=== PATIENT | male | born 1965 ===

== ENCOUNTER 2024-07-28 06:43 | Day surgery (SDC) | payer BC ==
[2024-07-21 11:46] LABS: PH,URINE 6.5 (5.0-8.0); URINE APPEARANCE Clear; URINE BILIRRUBIN Negative (NEGATIVE); URINE BLOOD Negative; URINE COLOR Yellow; URINE GLUCOSE Negative (NEGATIVE); URINE KETONE Negative (NEGATIVE); URINE LEUKOCYTE Negative; URINE NITRATE Negative; URINE PROTEIN Negative (NEGATIVE); URINE UROBILINOGEN 0.2 E.U./dl
[2024-07-21 11:47] LABS: HEMATOCRIT 41.7 % (39.0-48.0); MEAN CELL VOLUME 84.7 fL (80.0-100.00); MEAN CORPUSCULAR HEMOGLOBIN 28.4 pg (27.00-32.0); MEAN CORPUSCULAR HGB CONC 33.5 g/dl (32.0-36.0); PLATELET COUNT 152 K/uL (150-450); RED BLOOD COUNT 4.92 M/uL (4.00-6.00)
[2024-07-21 11:52] LABS: URINE BACTERIA 7.5 uL (0.0-1933)
[2024-07-21 12:05] LABS: URINE CAST 0.15 uL (0.0-1.40); URINE EPITHELIAL CELLS 1.3 uL (0.0-38.8); URINE RBC 0.6 uL (0.0-20.8); URINE WBC 1.3 uL (0.0-23.2)
[2024-07-21 12:31] LABS: ALBUMIN 4.2 gm/dL (3.4-5.0); BILIRUBIN TOTAL 0.5 mg/dL (0.3-1.2); CALCIUM 9.9 mg/dL (8.5-10.1); CREATININE SERUM 0.78 mg/dL (0.70-1.30); GFR 101.19; GLOBULINA 3.3 G/DL (2.4-3.5); POTASSIUM 4.23 mEq/L (3.5-5.1); TOTAL PROTEIN 7.5 gm/dL (6.4-8.2)
[2024-07-21 12:37] LABS: PARTIAL THROMBOPLASTIN TIME 29.9 SECONDS (22.0-34.0); PROTHROMBIN TIME 10.9 SECONDS (9.0-11.5)
[~2024-07-28 06:43] MED LIST: EC-NAPROXEN500 MG PO; ROPINIROLE HCL3 MG PO; SERTRALINE20 MG/1 ML
[2024-07-28] MEDS ORDERED: CEFAZOLIN SODIUM 1,000 MG VIAL IV ONE (08:45)
[2024-07-28] MEDS ORDERED: BUPIVACAINE HCL 30 ML VIAL IJ ONE (09:00)
== END 2024-07-28 13:30 | disposition home or self-care (01) ==
LOC: CIR.AMB 06:43
PROVIDERS: ATTEND Orthopaedic Surgery Hand Surgery
DX: M65.312 Trigger thumb, left thumb (principal)